=== PATIENT | female | born 1955 | race Caucasian/White ===

== ENCOUNTER 2017-12-12 08:27 | Emergency (ER) | payer OTHER ==
[~2017-12-12] VITALS: Ht 172.7 cm; Wt 86.2 kg
[~2017-12-12 08:27] MED LIST: ALPR0.5T PO
[2017-12-12] MEDS ORDERED: cloNIDine HCL 0.1 MG TAB PO ONE (08:45)
[2017-12-12 09:43] LABS: Eosinophils # (auto) 0.1 uL; Lymphocytes # (auto) 3.9 uL; Monocytes # (auto) 2.5 uL
[2017-12-12 09:44] LABS: Basophils # (auto) 0.1 uL; Basophils % (auto) 0.7 % (0.0-2.0); Eosinophils % (auto) 0.5 % (0.0-7.0); Hematocrit 39.6 % (36.0-46.0); Hemoglobin 13.1 g/dL (12.2-16.2); Lymphocytes % (auto) 17.9 % (10.0-50.0); Mean Corpuscular Hemoglobin 31.5 pg (28.0-32.0); Mean Corpuscular Hgb Conc. 33.1 g/dL (32.0-36.0); Mean Corpuscular Volume 95.2 fL (80.0-100.0); Monocytes % (auto) 11.5 % (0.0-12.0); Neutrophils % (auto) 69.4 % (37.0-80.0); Platelet Count (auto) 433 10^3/uL (140-450); Red Blood Cells 4.16 10^6/uL (4.0-5.20); Red Cell Distribution Width 13.8 % (11.8-14.3); White Blood Cell 21.6 10^3/uL (4.4-10.8)
[2017-12-12 10:08] LABS: INR 0.88 (0.9-1.15); Prothrombin Time 9.5 sec (9.27-12.13)
[2017-12-12 10:16] LABS: Alanine Aminotransferase 23 U/L (13-56); Albumin 3.3 g/dL (3.4-5.0); Alkaline Phosphatase 104 U/L (45-117); Anion Gap 10 (5-15); Aspartate Aminotransferase 15 U/L (15-37); BUN/Creatinine Ratio 20.2; Bilirubin, Total 0.2 mg/dL (0.2-1.0); Blood Urea Nitrogen 22 mg/dL (7-18); Calcium 9.2 mg/dL (8.5-10.1); Carbon Dioxide 23 mmol/L (21-32); Chloride 107 mmol/L (98-107); GFR African American 66 mL/min; GFR Non-African American 54 mL/min; Glucose 103 mg/dL (74-106); Potassium 4.2 mmol/L (3.5-5.1); Sodium 140 mmol/L (136-145); Total Protein 7.4 g/dL (6.4-8.2)
[2017-12-12] MEDS ORDERED: HYDROcodone-ACET 10/325MG TAB PO ONE (10:45)
[2017-12-12] MEDS ORDERED: SODIUM CHLORIDE 0.9% 500 ML IV ONE (11:41)
[2017-12-12] MEDS ORDERED: CLINDAMYCIN 600MG IV 50 ML IV ONE (11:45)
[2017-12-12] MEDS ORDERED: ONDANSETRON HCL 4 MG/2 ML VIAL IV ONE (11:45)
[2017-12-12] MEDS ORDERED: MEPERIDINE HCL (25 MG/ML) 1ML VIAL IV ONE ×2 (11:45→14:00)
[2017-12-12 14:55] VITALS: BP 181/50
== END 2017-12-12 15:39 | disposition home or self-care (01) ==
LOC: ER 08:31
DX: J32.0 Chronic maxillary sinusitis (principal); E78.5 Hyperlipidemia, unspecified; I10 Essential (primary) hypertension; F17.210 Nicotine dependence, cigarettes, uncomplicated; Z98.51 Tubal ligation status; Z90.89 Acquired absence of other organs; Z98.61 Coronary angioplasty status; Z86.73 Personal history of transient ischemic attack (TIA), and cerebral infarction without residual deficits
CPT/HCPCS: 36415; 70486; 80053; 84484; 85025; 85610; 85730; 93005; 94761; 96365; 96375; 96376; 99285; J2175; J2405; J3490; J7040

== ENCOUNTER 2019-08-18 17:46 | Inpatient (IN) | payer OTHER ==
[~2019-08-18] VITALS: Ht 172.7 cm; Wt 86.5 kg
[2019-08-18 18:44] LABS: Basophils # (auto) 0 uL; Basophils % (auto) 0.6 % (0.0-2.0); Eosinophils # (auto) 0.4 uL; Eosinophils % (auto) 4.3 % (0.0-7.0); Hematocrit 39.1 % (36.0-46.0); Hemoglobin 13.2 g/dL (12.2-16.2); Lymphocytes # (auto) 2.4 uL; Lymphocytes % (auto) 29.5 % (10.0-50.0); Mean Corpuscular Hemoglobin 32.7 pg (28.0-32.0); Mean Corpuscular Hgb Conc. 33.7 g/dL (32.0-36.0); Monocytes # (auto) 1.1 uL; Monocytes % (auto) 13.1 % (0.0-12.0); Neutrophils # (auto) 4.3 uL; Neutrophils % (auto) 52.5 % (37.0-80.0); Nucleated Red Blood Cells % 0.1 %; Platelet Count (auto) 224 10^3/uL (140-450); Red Blood Cells 4.03 10^6/uL (4.0-5.20); Red Cell Distribution Width 13.6 % (11.8-14.3); White Blood Cell 8.2 10^3/uL (4.4-10.8)
[2019-08-18 19:02] LABS: Alanine Aminotransferase 39 U/L (13-56); Albumin 3.1 g/dL (3.4-5.0); Anion Gap 6 (5-15); Aspartate Aminotransferase 33 U/L (15-37); BUN/Creatinine Ratio 22.5; Blood Urea Nitrogen 20 mg/dL (7-18); Calcium 8.5 mg/dL (8.5-10.1); Carbon Dioxide 24 mmol/L (21-32); Chloride 109 mmol/L (98-107); GFR African American 83 mL/min; GFR Non-African American 68 mL/min; Glucose 122 mg/dL (74-106); Potassium 3.7 mmol/L (3.5-5.1); Sodium 139 mmol/L (136-145)
[2019-08-18 19:07] LABS: Alkaline Phosphatase 91 U/L (45-117); Bilirubin, Total 0.2 mg/dL (0.2-1.0); Total Protein 6.8 g/dL (6.4-8.2)
[2019-08-18 19:12] LABS: INR 0.95 (0.9-1.15); Partial Thromboplastin Time 24.8 sec (23.64-32.05)
[2019-08-18] MEDS ORDERED: KETOROLAC TROMETH 15 mg/ml 1ML VL IV PRN (22:45)
[2019-08-18] MEDS ORDERED: MORPHINE SULF INJ 2 MG/ML SYRINGE 1ML IV PRN (22:45)
[2019-08-18] MEDS ORDERED: MORPHINE SULFATE 4 MG/ML SYR/VIAL IV PRN (22:45)
[2019-08-18] MEDS ORDERED: ALPRAZolam 0.5 MG TAB PO PRN (22:45)
[2019-08-18] MEDS ORDERED: NITROGLYCERIN 0.4 MG SL TAB SL PRN ×2 (22:45)
[2019-08-18] MEDS ORDERED: ONDANSETRON HCL 4 MG/2 ML VIAL IV PRN (22:45)
[2019-08-19] VITALS (7 sets, daily range): BP systolic 122–152; BP diastolic 61–77
--- NOTE | 2019-08-19 00:05 | NUR ---
Telemetry admit from ER MISBAH STRANGE admitted to Telemetry unit. Patient oriented to TIM CAMEJO, RN primary RN, unit, room, bed, and unit policies regarding patient care and visiting hours. Patient now on continuous telemetry monitoring, tele box # 67 and telemetry reading on arrival to unit is normal sinus rhythm at 67 beats per minute. Patient weighed by bedscale and encouraged to call if they need something. All questions and concerns addressed, patient verbalized understanding. Bed in lowest locked position, side rails up x2, call light within reach. Will round every hour and as needed and continue to monitor.
--- NOTE | 2019-08-19 02:00 | NUR ---
No repeat troponin labs noted, [employer] hcm consultant hospitalist paged, awaiting call back at this time.
--- NOTE | 2019-08-19 03:11 | NUR ---
Return page from loss prevention/safety district manager hospitalist Dr. Poncho Crowe MD at this time, new orders received for troponin lab draws every six hours times three. Per Dr. Crowe, monitor troponin levels and place Cardiology consult if "troponins come back positive". All orders read back and verified, will implement and continue to monitor.
[2019-08-19 04:22] LABS: Hematocrit 37.9 % (36.0-46.0); Hemoglobin 13.2 g/dL (12.2-16.2); Mean Corpuscular Hemoglobin 33.7 pg (28.0-32.0); Mean Corpuscular Hgb Conc. 34.8 g/dL (32.0-36.0); Mean Corpuscular Volume 96.9 fL (80.0-100.0); Platelet Count (auto) 197 10^3/uL (140-450); Red Blood Cells 3.91 10^6/uL (4.0-5.20); Red Cell Distribution Width 13.3 % (11.8-14.3); White Blood Cell 6.4 10^3/uL (4.4-10.8)
[2019-08-19 04:29] LABS: Chloride 111 mmol/L (98-107); Potassium 3.9 mmol/L (3.5-5.1); Sodium 143 mmol/L (136-145)
[2019-08-19 04:30] LABS: Basophils % (manual) 0 (0.0-2.0); Blast Cells 0; Metamyelocytes % 0; Myelocytes % 0; Promyelocytes % 0; Reactive Lymphocytes 0
[2019-08-19 04:42] LABS: Anion Gap 5 (5-15); BUN/Creatinine Ratio 21.6; Blood Urea Nitrogen 22 mg/dL (7-18); Calcium 8.8 mg/dL (8.5-10.1); Carbon Dioxide 27 mmol/L (21-32); Cholesterol 146 mg/dL (< 200); GFR African American 71 mL/min; GFR Non-African American 58 mL/min; Glucose 112 mg/dL (74-106); HDL Cholesterol 25 mg/dL (40-59); Triglycerides 650 mg/dL (< 150)
[2019-08-19 05:58] LABS: Eosinophils % (manual) 4 (0-7); Lymphocytes % (manual) 45 (10.0-50.0)
[2019-08-19 06:01] LABS: Band Neutrophils % (manual) 9; Monocytes % (manual) 11 (0-12)
--- NOTE | 2019-08-19 06:47 | NUR ---
Closing Note Patient lying in bed, eyes closed, respirations even and unlabored, appears asleep. No s/s of distress. Care endorsed to dayshift RN.
--- NOTE | 2019-08-19 08:30 | NUR ---
Opening Shift Note RECEIVED REPORT FROM NOC RN. Assumed care of patient, awake and alert. No S/S of distress/SOB or pain. BED IN LOWEST, LOCKED POSITION WITH SIDERAILS UP x2 AND CALL LIGHT WITHIN REACH. Instructed on POC and to call for assist PRN, will continue to monitor for changes Q1hr and PRN.
[2019-08-19] MEDS: DOCUSATE SOD 100 MG CAP PO SCH (10:08)
[2019-08-19] MEDS: ASPirin 81 mg TAB PO SCH (10:08)
[2019-08-19] MEDS: CLOPIDOGREL BISULFATE 75 MG TAB PO SCH (10:08)
[2019-08-19] MEDS: ACETAMINOPHEN 325 MG TAB PO PRN ×2 (10:09→20:01)
[2019-08-19] MEDS: METOPROLOL TARTRATE 25 MG TAB PO SCH ×2 (10:09→22:00)
[2019-08-19] MEDS: LISINOPRIL 10 MG TAB PO SCH (10:09)
[2019-08-19] MEDS ORDERED: MAGNESIUM OXIDE 400 MG TAB PO ONE (12:15)
--- NOTE | 2019-08-19 19:25 | NUR ---
Opening Shift Note Assumed care of patient, awake and alert. No S/S of distress/SOB or pain. Instructed on POC and to call for assist PRN, will continue to monitor for changes Q1hr and PRN.
[2019-08-19] MEDS: ATORVASTATIN 20 MG TAB PO SCH (21:50)
[2019-08-19] MEDS ORDERED: DOCUSATE SOD 100 MG CAP PO PRN (22:45)
--- NOTE | 2019-08-19 22:56 | NUR ---
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 PAGED HOSPITALIST, RECEIVED NEW ORDER FOR 100MG COLACE BID PRN. WILL ADMINISTER AND CONTINUE TO MONITOR.
[2019-08-20 05:00] VITALS: BP 135/72
[2019-08-20 05:48] LABS: Basophils # (auto) 0 uL; Basophils % (auto) 0.5 % (0.0-2.0); Eosinophils # (auto) 0.4 uL; Eosinophils % (auto) 5.4 % (0.0-7.0); Hematocrit 39.4 % (36.0-46.0); Hemoglobin 13.6 g/dL (12.2-16.2); Lymphocytes # (auto) 1.9 uL; Lymphocytes % (auto) 25.4 % (10.0-50.0); Mean Corpuscular Hemoglobin 33.4 pg (28.0-32.0); Mean Corpuscular Hgb Conc. 34.6 g/dL (32.0-36.0); Mean Corpuscular Volume 96.7 fL (80.0-100.0); Monocytes # (auto) 1.4 uL; Monocytes % (auto) 17.9 % (0.0-12.0); Neutrophils # (auto) 3.9 uL; Neutrophils % (auto) 50.8 % (37.0-80.0); Nucleated Red Blood Cells % 0.1 %; Platelet Count (auto) 198 10^3/uL (140-450); Red Blood Cells 4.08 10^6/uL (4.0-5.20); Red Cell Distribution Width 13.4 % (11.8-14.3); White Blood Cell 7.6 10^3/uL (4.4-10.8)
[2019-08-20 06:08] LABS: Anion Gap 6 (5-15); Blood Urea Nitrogen 18 mg/dL (7-18); Carbon Dioxide 24 mmol/L (21-32); Chloride 110 mmol/L (98-107); Glucose 101 mg/dL (74-106); Potassium 4.2 mmol/L (3.5-5.1); Sodium 140 mmol/L (136-145)
[2019-08-20 06:15] LABS: BUN/Creatinine Ratio 18.8; GFR African American 76 mL/min; GFR Non-African American 63 mL/min
[2019-08-20] MEDS ORDERED: ADENOSINE 74 MG in GIVE UN-DILUTED 0 ML IV STA (08:27)
[2019-08-20 09:00] VITALS: BP 129/72
[2019-08-20] MEDS: ASPirin 81 mg TAB PO SCH (09:56)
[2019-08-20] MEDS: DOCUSATE SOD 100 MG CAP PO SCH (09:57)
[2019-08-20] MEDS: LISINOPRIL 10 MG TAB PO SCH (09:58)
[2019-08-20] MEDS: CLOPIDOGREL BISULFATE 75 MG TAB PO SCH (09:58)
[2019-08-20] MEDS: METOPROLOL TARTRATE 25 MG TAB PO SCH ×2 (10:00→21:56)
[2019-08-20 11:51] VITALS: BP 129/86
[2019-08-20 13:00] VITALS: BP 124/70
[2019-08-20 16:58] VITALS: BP 142/70
[2019-08-20 21:16] VITALS: BP 134/74
[2019-08-20] MEDS: ATORVASTATIN 20 MG TAB PO SCH (21:55)
[2019-08-21 05:00] VITALS: BP 130/72
[2019-08-21] MEDS: SODIUM CHLORIDE 0.9% 1,000 ML IV SCH ×2 (05:09→11:08)
[2019-08-21 06:12] LABS: Basophils # (auto) 0 uL; Basophils % (auto) 0.4 % (0.0-2.0); Eosinophils # (auto) 0.5 uL; Eosinophils % (auto) 5.2 % (0.0-7.0); Hematocrit 40.1 % (36.0-46.0); Hemoglobin 13.8 g/dL (12.2-16.2); Lymphocytes # (auto) 2.3 uL; Lymphocytes % (auto) 24.8 % (10.0-50.0); Mean Corpuscular Hemoglobin 33.3 pg (28.0-32.0); Mean Corpuscular Hgb Conc. 34.5 g/dL (32.0-36.0); Mean Corpuscular Volume 96.7 fL (80.0-100.0); Monocytes # (auto) 1.4 uL; Monocytes % (auto) 15.5 % (0.0-12.0); Neutrophils # (auto) 5.1 uL; Neutrophils % (auto) 54.1 % (37.0-80.0); Platelet Count (auto) 199 10^3/uL (140-450); Red Blood Cells 4.14 10^6/uL (4.0-5.20); Red Cell Distribution Width 13.4 % (11.8-14.3); White Blood Cell 9.4 10^3/uL (4.4-10.8)
[2019-08-21 06:30] LABS: INR 0.95 (0.9-1.15); Partial Thromboplastin Time 25.4 sec (23.64-32.05)
[2019-08-21 06:33] LABS: Potassium 4.1 mmol/L (3.5-5.1)
[2019-08-21 06:42] LABS: BUN/Creatinine Ratio 16.5; Calcium 9.2 mg/dL (8.5-10.1)
--- NOTE | 2019-08-21 07:15 | NUR ---
OPENING SHIFT NOTE Patient comfortably resting in bed, AOx$. No s/s of distress or SOB noted/reported. Patient updated on POC for the day and to call for assistance as needed, patient verbalized understanding. Bed in low position, locked, side rails x2 up, call light within reach. Will continue to monitor.
[2019-08-21 09:00] VITALS: BP 124/69
--- NOTE | 2019-08-21 09:44 | NUR ---
OFF UNIT Patient transported to laboratory coordinator via bed, no s/s of distress noted/reported on departure.
[2019-08-21] MEDS: ASPirin 81 mg TAB PO SCH (10:00)
[2019-08-21] MEDS: LISINOPRIL 10 MG TAB PO SCH (10:00)
[2019-08-21] MEDS: DOCUSATE SOD 100 MG CAP PO SCH (10:00)
[2019-08-21] MEDS: METOPROLOL TARTRATE 25 MG TAB PO SCH ×2 (10:00→22:17)
[2019-08-21] MEDS: CLOPIDOGREL BISULFATE 75 MG TAB PO SCH (10:00)
[2019-08-21] MEDS ORDERED: LIDOCAINE 2%HCL (LOCAL ANESTH.) INJ 20ML MDV ONE (10:47)
[2019-08-21] MEDS ORDERED: IODIXANOL 320MG/ML 100ML BTL IV ONE (10:47)
[2019-08-21] MEDS ORDERED: SODIUM CHL 0.9% 50 ML ONE (10:48)
[2019-08-21] MEDS ORDERED: ANGIOMAX 250 MG VIAL IV ONE (10:48)
[2019-08-21] MEDS ORDERED: fentaNYL CITRATE 100 MCG/2 ML VL ONE (10:48)
[2019-08-21] MEDS ORDERED: MIDAZOLAM HCL 1MG/1ML-2 ML VIAL ONE (10:48)
[2019-08-21] MEDS ORDERED: VERAPAMIL 2.5MG/ML INJ 2ML VIAL IV ONE (10:48)
[2019-08-21] MEDS ORDERED: HEPARIN SODIUM (PORCINE) 5000 UNITS/ML 1ML VIAL ONE (10:49)
[2019-08-21] MEDS ORDERED: TICAGRELOR 90 MG TAB ONE (11:34)
[2019-08-21] MEDS ORDERED: ASPirin 325 MG TAB ONE (11:34)
--- NOTE | 2019-08-21 14:32 | NUR ---
VASC BAND Vasc band removed per protocol. Patient tolerated well. Will continue to monitor 1305- 2ml removed 1320- 2ml removed 1330- 2ml removed 1340- 2ml removed 1350- 2ml removed 1405- minimal bleeding noted, 2ml reinserted to vasc band. 1420- 2ml removed 1430- no new bleeding noted, gauze with tegaderm applied to site.
[2019-08-21] MEDS: ACETAMINOPHEN 325 MG TAB PO PRN (14:45)
[2019-08-21] MEDS ORDERED: LACTULOSE 20Gm/30ML SOLN PO ONE (15:15)
[2019-08-21 17:09] VITALS: BP 109/60
[2019-08-21] MEDS: ATORVASTATIN 20 MG TAB PO SCH (22:16)
[2019-08-21] MEDS: TICAGRELOR 90 MG TAB PO SCH (22:16)
[2019-08-21 22:21] VITALS: BP 157/86
[2019-08-22 05:06] VITALS: BP 111/61
[2019-08-22 05:49] LABS: Basophils # (auto) 0 uL; Basophils % (auto) 0.4 % (0.0-2.0); Eosinophils # (auto) 0.6 uL; Eosinophils % (auto) 5.5 % (0.0-7.0); Hematocrit 41.7 % (36.0-46.0); Hemoglobin 14.1 g/dL (12.2-16.2); Lymphocytes # (auto) 2.3 uL; Lymphocytes % (auto) 21.2 % (10.0-50.0); Mean Corpuscular Hemoglobin 32.7 pg (28.0-32.0); Mean Corpuscular Hgb Conc. 33.8 g/dL (32.0-36.0); Mean Corpuscular Volume 96.7 fL (80.0-100.0); Monocytes # (auto) 1.5 uL; Monocytes % (auto) 13.8 % (0.0-12.0); Neutrophils # (auto) 6.4 uL; Neutrophils % (auto) 59.1 % (37.0-80.0); Nucleated Red Blood Cells % 0.2 %; Platelet Count (auto) 216 10^3/uL (140-450); Red Blood Cells 4.31 10^6/uL (4.0-5.20); Red Cell Distribution Width 13.3 % (11.8-14.3); White Blood Cell 10.8 10^3/uL (4.4-10.8)
[2019-08-22 06:11] LABS: Potassium 4.1 mmol/L (3.5-5.1)
[2019-08-22 06:19] LABS: BUN/Creatinine Ratio 13.4
--- NOTE | 2019-08-22 07:15 | NUR ---
OPENING SHIFT NOTE Patient comfortably resting in bed, AOx4. No s/s of distress or SOB noted/reported. Patient updated on POC for the day and to call for assistance as needed, patient verbalized understanding. Bed in low position, locked, side rails x2 up, call light within reach. Will continue to monitor.
[2019-08-22 09:00] VITALS: BP 131/72
[2019-08-22] MEDS: TICAGRELOR 90 MG TAB PO SCH (09:56)
[2019-08-22] MEDS: DOCUSATE SOD 100 MG CAP PO SCH (09:56)
[2019-08-22] MEDS: LISINOPRIL 10 MG TAB PO SCH (09:56)
[2019-08-22] MEDS: METOPROLOL TARTRATE 25 MG TAB PO SCH (09:56)
[2019-08-22] MEDS ORDERED: ASPirin 81 mg TAB PO SCH (10:00)
[2019-08-22 13:28] VITALS: BP 131/72
--- NOTE | 2019-08-22 14:23 | NUR ---
PT DISCHARGED Discharge instructions given as ordered. Encourage to follow up with PMD as instructed. All questions and concerns addressed. Patient verbalized understanding. IV removed with catheter intact, pressure dressing applied. Telemetry unit returned to ICU. Patient taken to vehicle via wheelchair with all personal belongings, accompanied by staff and family member. No distress noted at time of departure.
--- NOTE | 2019-08-22 14:56 | NUR ---
Nutrition Assessment Notes Please refer to link for full assessment notes. Est energy needs: 5339-1716 kcals (20-23 kcal/kgBW) Est protein needs: 69-87 gms/day (0.8-1.0 gm/kgBW) Will continue to monitor and reassess prn. Addendum: 08/22/19 at [address] Amended: Links added.
[2019-08-22] MEDS: SODIUM CHLORIDE 0.9% 1,000 ML IV SCH ×2 (14:57→15:08)
== END 2019-08-22 14:23 | disposition home or self-care (01) | DRG 247 ==
LOC: ER 17:46 → TELE 17:47 → ER 20:19 → TELE-WESTW 23:06
PROVIDERS: ADMIT Hospitalist; ATTEND Internal Medicine
PROC: 4A023N7 Measurement of Cardiac Sampling and Pressure, Left Heart, Percutaneous Approach (ICD-10-PCS; principal; 2019-08-21)
PROC: 027034Z Dilation of Coronary Artery, One Artery with Drug-eluting Intraluminal Device, Percutaneous Approach (ICD-10-PCS; 2019-08-21)
PROC: B2151ZZ Fluoroscopy of Left Heart using Low Osmolar Contrast (ICD-10-PCS; 2019-08-21)
PROC: B2111ZZ Fluoroscopy of Multiple Coronary Arteries using Low Osmolar Contrast (ICD-10-PCS; 2019-08-21)
DX: I25.10 Atherosclerotic heart disease of native coronary artery without angina pectoris (principal); I10 Essential (primary) hypertension; E78.1 Pure hyperglyceridemia; F41.9 Anxiety disorder, unspecified; E78.5 Hyperlipidemia, unspecified; Z95.5 Presence of coronary angioplasty implant and graft; Z79.82 Long term (current) use of aspirin; Z79.899 Other long term (current) drug therapy; Z79.02 Long term (current) use of antithrombotics/antiplatelets; Z80.0 Family history of malignant neoplasm of digestive organs; Z82.49 Family history of ischemic heart disease and other diseases of the circulatory system; Z83.3 Family history of diabetes mellitus; Z87.891 Personal history of nicotine dependence; Z90.49 Acquired absence of other specified parts of digestive tract
CPT/HCPCS: 36415; 71045; 78452; 80048; 80053; 80061; 83735; 83880; 84443; 84484; 85007; 85025; 85027; 85610; 85730; 92928; 93017; 93306; 93458; 93925; 99152; 99153; C1874; G0378; J0153; J2250; Q9967

== ENCOUNTER 2023-07-18 11:52 | Inpatient (IN) | payer OTHER ==
[~2023-07-18] VITALS: Ht 172.7 cm; Wt 93.0 kg
[2023-07-18] MEDS ORDERED: ASPirin 325 MG TAB PO ONE (12:15)
[2023-07-18] MEDS ORDERED: SODIUM CHLORIDE 0.9% 500 ML IV ONE ×2 (12:15→14:00)
[2023-07-18] MEDS ORDERED: NITROGLYCERIN 0.4 MG SL TAB SL ONE (12:15)
[2023-07-18 12:19] LABS: Basophils # (auto) 0.1 10 ^3/uL (0-0.2); Basophils % (auto) 0.5 % (0.0-2.0); Eosinophils # (auto) 0.1 10 ^3/uL (0-0.8); Eosinophils % (auto) 1.2 % (0.0-7.0); Hematocrit 39.9 % (36.0-46.0); Hemoglobin 13.4 g/dL (12.2-16.2); Lymphocytes # (auto) 4.2 10 ^3/uL (0.4-5.4); Lymphocytes % (auto) 34.1 % (10.0-50.0); Mean Corpuscular Hemoglobin 32.4 pg (28.0-32.0); Mean Corpuscular Hgb Conc. 33.7 g/dL (32.0-36.0); Mean Corpuscular Volume 96.1 fL (80.0-100.0); Monocytes # (auto) 1.1 10 ^3/uL (0-1.3); Monocytes % (auto) 8.9 % (0.0-12.0); Neutrophils # (auto) 6.7 10 ^3/uL (1.6-8.6); Neutrophils % (auto) 55.3 % (37.0-80.0); Red Blood Cells 4.16 10^6/uL (4.0-5.20); Red Cell Distribution Width 13.4 % (11.8-14.3); White Blood Cell 12.2 10^3/uL (4.4-10.8)
[2023-07-18 12:35] LABS: Alanine Aminotransferase 19 U/L (7-40); Albumin 4.6 g/dL (3.2-4.8); Alkaline Phosphatase 103 U/L (46-116); Anion Gap 7 (5-15); Aspartate Aminotransferase 25 U/L (13-40); BUN/Creatinine Ratio 17.9 (10.0-20.0); Bilirubin, Total 0.3 mg/dL (0.2-1.0); Blood Urea Nitrogen 17 mg/dL (9-23); Carbon Dioxide 25 mmol/L (20-30); Chloride 106 mmol/L (98-107); Glucose 104 mg/dL (74-106); Potassium 4.1 mmol/L (3.5-5.1); Sodium 138 mmol/L (136-145); Total Protein 6.8 g/dL (5.7-8.2)
[2023-07-18] MEDS ORDERED: LISI10TA34 PO (13:57)
[2023-07-18] MEDS ORDERED: ALPR0.255 PO (13:57)
[2023-07-18] MEDS ORDERED: ESCI1TAB37 (13:57)
[2023-07-18] MEDS ORDERED: MET25T PO (13:57)
[2023-07-18] MEDS ORDERED: ATOR40TA52 PO (13:57)
[2023-07-18] MEDS ORDERED: ESCI1TAB37 PO (13:57)
[2023-07-18] MEDS ORDERED: ACETAMINOPHEN 325 MG TAB PO PRN (14:00)
[2023-07-18] MEDS ORDERED: NITROGLYCERIN 0.4 MG SL TAB SL PRN (14:00)
[2023-07-18] MEDS ORDERED: hydrALAZINE HCL 20 MG/ML VL IV PRN (14:15)
[2023-07-18] MEDS: SODIUM CHLORIDE 0.9% 1,000 ML IV SCH (14:43)
[2023-07-18 14:50] LABS: Triglycerides 246 mg/dL (< 150)
[2023-07-18 14:51] LABS: LDL Cholesterol 80 mg/dL (< 100)
[2023-07-18 14:52] LABS: Cholesterol 160 mg/dL (< 200); HDL Cholesterol 36 mg/dL (40-59)
[2023-07-18 16:56] VITALS: PULSE 67; RESP 18; O2SAT 95
[2023-07-18] MEDS: MORPHINE SULFATE INJ 2 MG/ml SYRG IV PRN ×2 (17:10→20:07)
[2023-07-18 19:36] VITALS: PULSE 52; RESP 17; O2SAT 94
[2023-07-18] MEDS ORDERED: PANTOPRAZOLE 40 MG TAB PO ONE (20:00)
[2023-07-18 21:49] LABS: Urine Bacteria NONE SEEN /hpf (None Seen); Urine Blood 2+ /uL (Negative); Urine Clarity Clear (Clear); Urine Color Yellow (Yellow); Urine Protein, UAD Negative (Negative); Urine Specific Gravity 1.022 (1.001-1.035); Urine Urobilinogen Normal (Negative); Urine WBC <1 /hpf (0 - 5)
[2023-07-18] MEDS ORDERED: ESCI20TA PO (23:12)
[2023-07-18] MEDS ORDERED: ASPI81CH59 PO (23:12)
[2023-07-19] VITALS (9 sets, daily range): BP systolic 125–146; BP diastolic 50–66; PULSE 47–72; RESP 17–20; TEMP 96.9–98.5; O2SAT 93–97
[2023-07-19] MEDS ORDERED: HYDROcodone-ACET 5/325MG TAB PO ONE (03:00)
[2023-07-19] MEDS: SODIUM CHLORIDE 0.9% 1,000 ML IV SCH ×2 (06:40→23:31)
[2023-07-19 07:55] LABS: Alanine Aminotransferase 13 U/L (7-40); Albumin 3.6 g/dL (3.2-4.8); Alkaline Phosphatase 80 U/L (46-116); Anion Gap 6 (5-15); Aspartate Aminotransferase 16 U/L (13-40); BUN/Creatinine Ratio 12.1 (10.0-20.0); Blood Urea Nitrogen 11 mg/dL (9-23); Calcium 9.2 mg/dL (8.5-10.1); Carbon Dioxide 21 mmol/L (20-30); Chloride 113 mmol/L (98-107); Glucose 90 mg/dL (74-106); Potassium 4.1 mmol/L (3.5-5.1); Sodium 140 mmol/L (136-145)
[2023-07-19 07:56] LABS: Bilirubin, Total 0.3 mg/dL (0.2-1.0); Total Protein 5.6 g/dL (5.7-8.2)
[2023-07-19 08:01] LABS: Basophils # (auto) 0 10 ^3/uL (0-0.2); Basophils % (auto) 0.4 % (0.0-2.0); Eosinophils # (auto) 0.3 10 ^3/uL (0-0.8); Eosinophils % (auto) 2.1 % (0.0-7.0); Hematocrit 37.3 % (36.0-46.0); Hemoglobin 11.9 g/dL (12.2-16.2); Lymphocytes # (auto) 3.8 10 ^3/uL (0.4-5.4); Lymphocytes % (auto) 32.5 % (10.0-50.0); Mean Corpuscular Hgb Conc. 31.8 g/dL (32.0-36.0); Mean Corpuscular Volume 100.6 fL (80.0-100.0); Monocytes # (auto) 1.1 10 ^3/uL (0-1.3); Monocytes % (auto) 9.4 % (0.0-12.0); Neutrophils # (auto) 6.5 10 ^3/uL (1.6-8.6); Neutrophils % (auto) 55.6 % (37.0-80.0); Nucleated Red Blood Cells % 0.1 %; Red Blood Cells 3.71 10^6/uL (4.0-5.20); Red Cell Distribution Width 13.8 % (11.8-14.3); White Blood Cell 11.8 10^3/uL (4.4-10.8)
[2023-07-19] MEDS: ENOXAPARIN SOD 40 MG/0.4 ML SYRINGE SC SCH (10:28)
[2023-07-19] MEDS: ASPirin 81 mg TAB PO SCH (10:29)
[2023-07-19] MEDS ORDERED: TEMAZEPAM 15 MG CAP PO ONE (20:30)
[2023-07-19] MEDS: ATORVASTATIN 20 MG TAB PO SCH (22:10)
[2023-07-20] VITALS (7 sets, daily range): BP systolic 138–148; BP diastolic 69–90; PULSE 53–70; RESP 17–18; TEMP 97.2–98.6; O2SAT 93–98
[2023-07-20 06:33] LABS: Basophils # (auto) 0 10 ^3/uL (0-0.2); Basophils % (auto) 0.6 % (0.0-2.0); Eosinophils # (auto) 0.2 10 ^3/uL (0-0.8); Hematocrit 36.9 % (36.0-46.0); Hemoglobin 12.5 g/dL (12.2-16.2); Lymphocytes # (auto) 2.4 10 ^3/uL (0.4-5.4); Lymphocytes % (auto) 29.1 % (10.0-50.0); Mean Corpuscular Hemoglobin 32.6 pg (28.0-32.0); Monocytes # (auto) 0.9 10 ^3/uL (0-1.3); Monocytes % (auto) 10.3 % (0.0-12.0); Neutrophils # (auto) 4.8 10 ^3/uL (1.6-8.6); Nucleated Red Blood Cells % 0.1 %; Red Blood Cells 3.85 10^6/uL (4.0-5.20); Red Cell Distribution Width 13.4 % (11.8-14.3); White Blood Cell 8.2 10^3/uL (4.4-10.8)
[2023-07-20 06:39] LABS: INR 0.97 (0.9-1.15); Prothrombin Time 10.2 sec (9.3-11.8)
[2023-07-20 06:44] LABS: Alanine Aminotransferase 11 U/L (7-40); Albumin 3.9 g/dL (3.2-4.8); Alkaline Phosphatase 81 U/L (46-116); Anion Gap 7 (5-15); Aspartate Aminotransferase 16 U/L (13-40); BUN/Creatinine Ratio 15.6 (10.0-20.0); Blood Urea Nitrogen 14 mg/dL (9-23); Calcium 9.5 mg/dL (8.5-10.1); Carbon Dioxide 24 mmol/L (20-30); Chloride 111 mmol/L (98-107); Glucose 91 mg/dL (74-106); LDL Cholesterol 67 mg/dL (< 100); Potassium 4.1 mmol/L (3.5-5.1); Sodium 142 mmol/L (136-145); Triglycerides 162 mg/dL (< 150)
[2023-07-20 06:45] LABS: Bilirubin, Total 0.4 mg/dL (0.2-1.0); Cholesterol 129 mg/dL (< 200); HDL Cholesterol 30 mg/dL (40-59)
[2023-07-20 06:51] LABS: Lipase 113 U/L (12-53); Magnesium 1.9 mg/dL (1.6-2.6)
[2023-07-20] MEDS ORDERED: SODIUM CHLORIDE 0.9% 1,000 ML IV ONE (09:15)
[2023-07-20] MEDS: GEMFIBROZIL 600 MG TAB PO SCH (10:00)
[2023-07-20] MEDS: PANTOPRAZOLE 40 MG/10 ML VIAL INJ IV SCH (10:00)
[2023-07-20] MEDS: ENOXAPARIN SOD 40 MG/0.4 ML SYRINGE SC SCH (10:00)
[2023-07-20] MEDS ORDERED: LISINOPRIL 10 MG TAB PO SCH (10:00)
[2023-07-20] MEDS: ASPirin 81 mg TAB PO SCH (10:00)
[2023-07-20] MEDS ORDERED: REGADENOSON 0.4 MG/5 ML SYRG IV ONE ×2 (11:40→12:00)
[2023-07-20] MEDS ORDERED: IOHEXOL 300 MG/ML 100ML BOTTLE IJ ONE (12:05)
[2023-07-20] MEDS: SODIUM CHLORIDE 0.9% 1,000 ML IV SCH (16:02)
[2023-07-20] MEDS: METOPROLOL TARTRATE 25 MG TAB PO SCH (22:00)
[2023-07-20] MEDS: ATORVASTATIN 20 MG TAB PO SCH (22:25)
[2023-07-21 05:00] VITALS: BP 156/88; PULSE 70; RESP 19; TEMP 98; O2SAT 95
[2023-07-21 07:54] VITALS: PULSE 65
[2023-07-21 08:00] VITALS: PULSE 63; PULSE 84; RESP 19; O2SAT 96
[2023-07-21 08:07] LABS: CA 27.29 35.1 U/mL (0.0-38.6); Cancer Antigen (CA) 125 6.4 U/mL (0.0-38.1)
[2023-07-21] MEDS: SODIUM CHLORIDE 0.9% 1,000 ML IV SCH (08:48)
[2023-07-21 09:00] VITALS: BP 156/81; PULSE 65; RESP 19; TEMP 98.2; O2SAT 96
[2023-07-21] MEDS: ASPirin 81 mg TAB PO SCH (10:12)
[2023-07-21] MEDS: METOPROLOL TARTRATE 25 MG TAB PO SCH (10:13)
[2023-07-21] MEDS: GEMFIBROZIL 600 MG TAB PO SCH (10:14)
[2023-07-21] MEDS: ENOXAPARIN SOD 40 MG/0.4 ML SYRINGE SC SCH (10:15)
[2023-07-21] MEDS: PANTOPRAZOLE 40 MG/10 ML VIAL INJ IV SCH (10:15)
[2023-07-21 12:36] VITALS: BP 151/65; PULSE 87; RESP 18; TEMP 97.5; O2SAT 98
[2023-07-21 13:00] VITALS: BP 145/83; PULSE 66; RESP 18; TEMP 98.4; O2SAT 95
== END 2023-07-21 14:07 | disposition home health service (06) | DRG 439 ==
LOC: ER 11:52 → TELE 13:56 → TELE-CENTR 13:56
PROVIDERS: ADMIT Nurse Practitioner Family; ATTEND Internal Medicine
PROC: 4A02XM4 Measurement of Cardiac Total Activity, External Approach (ICD-10-PCS; principal; 2023-07-20)
PROC: 3E073KZ Introduction of Other Diagnostic Substance into Coronary Artery, Percutaneous Approach (ICD-10-PCS; 2023-07-20)
DX: K85.90 Acute pancreatitis without necrosis or infection, unspecified (principal); I25.110 Atherosclerotic heart disease of native coronary artery with unstable angina pectoris; E78.5 Hyperlipidemia, unspecified; E86.0 Dehydration; I10 Essential (primary) hypertension; E78.1 Pure hyperglyceridemia; F32.9 Major depressive disorder, single episode, unspecified; D35.01 Benign neoplasm of right adrenal gland; Z90.49 Acquired absence of other specified parts of digestive tract; Z98.61 Coronary angioplasty status; Z83.3 Family history of diabetes mellitus; Z82.49 Family history of ischemic heart disease and other diseases of the circulatory system; Z87.891 Personal history of nicotine dependence; Z79.82 Long term (current) use of aspirin; Z80.0 Family history of malignant neoplasm of digestive organs
CPT/HCPCS: 36415; 71045; 74178; 74181; 76705; 78452; 80053; 80061; 81001; 82378; 83690; 83735; 84443; 84484; 85025; 85610; 85730; 86300; 86301; 86304; 93005; 93017; 93306; C9113; G0378

== ENCOUNTER 2024-01-15 07:48 | Observation (INO) | payer OTHER ==
[~2024-01-15] VITALS: Ht 172.7 cm; Wt 97.1 kg
[~2024-01-15 07:48] MED LIST changes: -ALPR0.5T PO; +ASPI81CH59 PO; +ATOR40TA52 PO; +ESCI1TAB37 PO; +LISI10TA34 PO; +MET25T PO
[2024-01-15] MEDS: BUPIVACAINE HCL 50 ML ONE (10:00)
[2024-01-15] MEDS: TRANEXAMIC ACID 20 ML ONE (10:00)
[2024-01-15] MEDS ORDERED: fentaNYL CITRATE 100 MCG/2 ML VL ONE (10:04)
[2024-01-15] MEDS ORDERED: PROPOFOL 10 MG/ML 20 ML IV ONE (10:05)
[2024-01-15] MEDS ORDERED: MIDAZOLAM HCL 2MG/2ML 2ml VIAL (1mg/ml) ONE (10:05)
[2024-01-15] MEDS ORDERED: ONDANSETRON HCL 4 MG/2 ML VIAL ONE (10:05)
[2024-01-15] MEDS ORDERED: SODIUM CHLORIDE LOCK 10 ML ONE (10:05)
[2024-01-15] MEDS ORDERED: KETAMINE 50mg/ML 1ml syringe ONE (10:06)
[2024-01-15] MEDS: METOCLOPRAMIDE HCL 5MG/ml INJ 2ml VIAL IV ONE (10:45)
[2024-01-15] MEDS ORDERED: HYDROmorphone HCL 2 MG/ML VL/or syr IV PRN ×3 (10:45→12:45)
[2024-01-15] MEDS ORDERED: fentaNYL CITRATE 100 MCG/2 ML VL IV PRN (10:45)
[2024-01-15] MEDS ORDERED: NALOXONE HCL 0.4 MG/ML VIAL IV PRN (10:45)
[2024-01-15] MEDS ORDERED: diphenhdrAMINE HCL 50 MG/1 ML VL IV PRN (10:45)
[2024-01-15] MEDS ORDERED: MORPHINE SULFATE INJ 2 MG/ml SYRG IV PRN ×3 (10:45→12:45)
[2024-01-15] MEDS: CEFEPIME 1GM/ 50ML 50 ML IV ONE (10:48)
[2024-01-15] MEDS: ceFAZolin 2 GM/D5W50ml 50 ML IV ONE (11:04)
[2024-01-15] MEDS: MORPHINE SULF PF 5 MG/10 ML VIAL ONE (11:36)
[2024-01-15] MEDS: KETOROLAC TROMETH 30 MG/ML 1ML VIAL ONE (11:36)
[2024-01-15] MEDS: VANCOMYCIN HCL 1000 MG VL ONE (11:36)
[2024-01-15 12:45] VITALS: O2SAT 98
[2024-01-15] MEDS ORDERED: NITROGLYCERIN 0.4 MG SL TAB SL PRN (12:45)
[2024-01-15] MEDS: ceFAZolin 1GM/50ML 50 ML IV SCH (12:45)
[2024-01-15] MEDS: DexAMETHasone SOD PHOS 4 MG/1ML SDV INJ ONE (13:04)
[2024-01-15 15:37] VITALS: PULSE 64; RESP 16; O2SAT 96
[2024-01-15 15:40] VITALS: BP 113/60; PULSE 64; RESP 16; TEMP 97.5; O2SAT 96
[2024-01-15 16:02] VITALS: BP 92/62; PULSE 64; RESP 16; TEMP 97.5; O2SAT 96
[2024-01-15 20:00] VITALS: PULSE 75; PULSE 79; RESP 18; O2SAT 94
[2024-01-15] MEDS: ONDANSETRON HCL 4 MG/2 ML VIAL IV PRN (20:31)
[2024-01-15 21:00] VITALS: BP 100/51; PULSE 79; RESP 18; TEMP 98.2; O2SAT 94
[2024-01-15] MEDS: oxyCODONE ER 10 MG TAB PO SCH (22:00)
[2024-01-15] MEDS: DOCUSATE SOD 100 MG CAP PO SCH (22:02)
[2024-01-16] VITALS (26 sets, daily range): BP systolic 72–149; BP diastolic 51–129; PULSE 59–90; RESP 16–18; TEMP 97.6–98.1; O2SAT 93–95
[2024-01-16] MEDS: OXYCODONE W/ ACETAMINOPHEN 5/325MG TABLET PO PRN (06:47)
[2024-01-16] MEDS: CEFEPIME 1GM/ 50ML 50 ML IV SCH (08:20)
[2024-01-16] MEDS: ENOXAPARIN SOD 40 MG/0.4 ML SYRINGE SC SCH (08:21)
[2024-01-16 12:48] LABS: Basophils # (auto) 0.1 10 ^3/uL (0-0.2); Basophils % (auto) 0.4 % (0.0-2.0); Eosinophils # (auto) 0 10 ^3/uL (0-0.8); Hematocrit 33.7 % (36.0-46.0); Hemoglobin 11.1 g/dL (12.2-16.2); Lymphocytes # (auto) 1.8 10 ^3/uL (0.4-5.4); Lymphocytes % (auto) 8.3 % (10.0-50.0); Mean Corpuscular Hemoglobin 31.4 pg (28.0-32.0); Mean Corpuscular Hgb Conc. 32.9 g/dL (32.0-36.0); Mean Corpuscular Volume 95.3 fL (80.0-100.0); Monocytes # (auto) 2.2 10 ^3/uL (0-1.3); Monocytes % (auto) 9.8 % (0.0-12.0); Neutrophils # (auto) 18.1 10 ^3/uL (1.6-8.6); Neutrophils % (auto) 81.5 % (37.0-80.0); Red Blood Cells 3.54 10^6/uL (4.0-5.20); Red Cell Distribution Width 13.8 % (11.8-14.3); White Blood Cell 22.2 10^3/uL (4.4-10.8)
[2024-01-16 13:00] LABS: Chloride 106 mmol/L (98-107); Potassium 4.1 mmol/L (3.5-5.1); Sodium 136 mmol/L (136-145)
[2024-01-16 13:01] LABS: Anion Gap 5 (5-15); Calcium 9.9 mg/dL (8.7-10.4); Carbon Dioxide 25 mmol/L (20-30)
[2024-01-16 13:06] LABS: BUN/Creatinine Ratio 15.8 (10.0-20.0); Blood Urea Nitrogen 23 mg/dL (9-23); Glucose 169 mg/dL (74-106)
[2024-01-16] MEDS: MELATONIN 5 MG TAB PO ONE (23:51)
[2024-01-17 05:00] VITALS: BP 149/76; PULSE 90; RESP 18; TEMP 98.2; O2SAT 92
[2024-01-17 08:30] VITALS: PULSE 70; PULSE 77; RESP 14; O2SAT 94
[2024-01-17 09:00] VITALS: BP_SYST 156; BP_SYST 171; BP_DIAS 82; BP_DIAS 84; PULSE 72; RESP 20; TEMP 97.8; O2SAT 96
[2024-01-17] MEDS: LISINOPRIL 5 MG TAB PO SCH (11:00)
[2024-01-17] MEDS: METOPROLOL TARTRATE 25 MG TAB PO SCH (11:00)
[2024-01-17] MEDS: SODIUM CHLORIDE 0.9% 1,000 ML IV ONE ×2 (12:00)
[2024-01-17] MEDS: hydrALAZINE HCL 20 MG/ML VL IV PRN (12:39)
[2024-01-17 13:00] VITALS: BP 161/66; PULSE 78; RESP 20; TEMP 98.4; O2SAT 98
[2024-01-17 13:34] LABS: Basophils # (auto) 0 10 ^3/uL (0-0.2); Basophils % (auto) 0.2 % (0.0-2.0); Eosinophils # (auto) 0.1 10 ^3/uL (0-0.8); Eosinophils % (auto) 0.7 % (0.0-7.0); Hematocrit 34.5 % (36.0-46.0); Hemoglobin 11.3 g/dL (12.2-16.2); Lymphocytes # (auto) 2.9 10 ^3/uL (0.4-5.4); Lymphocytes % (auto) 15.5 % (10.0-50.0); Mean Corpuscular Hemoglobin 31.3 pg (28.0-32.0); Mean Corpuscular Hgb Conc. 32.8 g/dL (32.0-36.0); Mean Corpuscular Volume 95.6 fL (80.0-100.0); Monocytes # (auto) 2.2 10 ^3/uL (0-1.3); Monocytes % (auto) 11.4 % (0.0-12.0); Neutrophils # (auto) 13.7 10 ^3/uL (1.6-8.6); Neutrophils % (auto) 72.2 % (37.0-80.0); Red Blood Cells 3.61 10^6/uL (4.0-5.20); Red Cell Distribution Width 13.7 % (11.8-14.3); White Blood Cell 18.9 10^3/uL (4.4-10.8)
[2024-01-17] MEDS: ACETAMINOPHEN 325 MG TAB PO PRN (13:34)
[2024-01-17 13:42] LABS: Chloride 106 mmol/L (98-107); Sodium 136 mmol/L (136-145)
[2024-01-17 13:43] LABS: Anion Gap 4 (5-15); Calcium 9.5 mg/dL (8.7-10.4); Carbon Dioxide 26 mmol/L (20-30)
[2024-01-17 13:48] LABS: Blood Urea Nitrogen 16 mg/dL (9-23); Glucose 117 mg/dL (74-106)
[2024-01-17 14:08] VITALS: BP 151/74; PULSE 84
== END 2024-01-17 15:00 | disposition home health service (06) ==
LOC: SUR 07:48 → OVERFLOW 12:34 → TELE-CENTR 15:35
PROVIDERS: ADMIT Orthopaedic Surgery; ATTEND Orthopaedic Surgery Adult Reconstructive Orthopaedic Surgery
DX: M17.11 Unilateral primary osteoarthritis, right knee (principal); D72.829 Elevated white blood cell count, unspecified; E78.5 Hyperlipidemia, unspecified; F32.9 Major depressive disorder, single episode, unspecified; I12.9 Hypertensive chronic kidney disease with stage 1 through stage 4 chronic kidney disease, or unspecified chronic kidney disease; N18.30 Chronic kidney disease, stage 3 unspecified; Z87.891 Personal history of nicotine dependence; Z79.899 Other long term (current) drug therapy; Z98.890 Other specified postprocedural states
CPT/HCPCS: 27447; 36415; 73562; 80048; 85025; 86850; 86900; 86901; 96365; 96366; 96367; 96372; 96375; 96376; 97110; 97116; 97163; 97530; C1713; C1776; G0378; J0360; J0690; J0692; J1650; J1885; J2250; J2270; J2405; J2704; J3010; J3370; J3490; J7030; J1100

== ENCOUNTER 2024-01-26 02:51 | Inpatient (IN) | payer OTHER ==
[~2024-01-26] VITALS: Ht 172.7 cm; Wt 92.8 kg
[2024-01-26 03:59] LABS: Basophils # (auto) 0.1 10 ^3/uL (0-0.2); Basophils % (auto) 0.5 % (0.0-2.0); Eosinophils # (auto) 0.2 10 ^3/uL (0-0.8); Eosinophils % (auto) 1.1 % (0.0-7.0); Hematocrit 35.3 % (36.0-46.0); Hemoglobin 12.2 g/dL (12.2-16.2); Lymphocytes # (auto) 2.4 10 ^3/uL (0.4-5.4); Lymphocytes % (auto) 13.2 % (10.0-50.0); Mean Corpuscular Hemoglobin 32.4 pg (28.0-32.0); Mean Corpuscular Hgb Conc. 34.5 g/dL (32.0-36.0); Mean Corpuscular Volume 93.9 fL (80.0-100.0); Monocytes # (auto) 1.3 10 ^3/uL (0-1.3); Monocytes % (auto) 7.4 % (0.0-12.0); Neutrophils # (auto) 14.1 10 ^3/uL (1.6-8.6); Neutrophils % (auto) 77.8 % (37.0-80.0); Red Blood Cells 3.76 10^6/uL (4.0-5.20); Red Cell Distribution Width 13.7 % (11.8-14.3); White Blood Cell 18.1 10^3/uL (4.4-10.8)
[2024-01-26 04:15] LABS: Alanine Aminotransferase 43 U/L (7-40); Albumin 4.4 g/dL (3.2-4.8); Alkaline Phosphatase 106 U/L (46-116); Anion Gap 8 (5-15); Aspartate Aminotransferase 36 U/L (13-40); BUN/Creatinine Ratio 17.6 (10.0-20.0); Bilirubin, Total 0.6 mg/dL (0.2-1.0); Blood Urea Nitrogen 21 mg/dL (9-23); Calcium 10.2 mg/dL (8.7-10.4); Carbon Dioxide 25 mmol/L (20-30); Chloride 102 mmol/L (98-107); Glucose 131 mg/dL (74-106); Potassium 4.3 mmol/L (3.5-5.1); Sodium 135 mmol/L (136-145); Total Protein 7.3 g/dL (5.7-8.2)
[2024-01-26 06:27] VITALS: PULSE 99; RESP 18; O2SAT 97
[2024-01-26] MEDS: cefTRIAXone 1GM/50ML D5W 50 ML IV ONE (06:27)
[2024-01-26] MEDS: metroNIDAZOLE 500MG/100ML 100 ML IV ONE (07:26)
[2024-01-26] MEDS ORDERED: ACETAMINOPHEN 325 MG TAB PO PRN (09:30)
[2024-01-26] MEDS ORDERED: MORPHINE SULFATE INJ 2 MG/ml SYRG IV PRN (09:30)
[2024-01-26] MEDS ORDERED: ONDANSETRON HCL 4 MG/2 ML VIAL IV PRN (09:30)
[2024-01-26 10:00] VITALS: PULSE 89; RESP 16; O2SAT 95
[2024-01-26] MEDS: ENOXAPARIN SOD 40 MG/0.4 ML SYRINGE SC SCH (10:18)
[2024-01-26] MEDS: SODIUM CHLORIDE 0.9% 1,000 ML IV SCH (10:18)
[2024-01-26] MEDS: levoFLOXacin 500MG 100 ML IV SCH (10:18)
[2024-01-26] MEDS: HYDROcodone-ACET 5/325MG TAB PO PRN (12:08)
[2024-01-26] MEDS: DOCUSATE SOD 100 MG CAP PO PRN (12:08)
[2024-01-26] MEDS: metroNIDAZOLE 500MG/100ML 100 ML IV SCH (18:41)
[2024-01-26 18:43] VITALS: BP 131/65; PULSE 90; RESP 16; TEMP 98.4; O2SAT 97
[2024-01-26 20:00] VITALS: PULSE 81; PULSE 88; RESP 19; O2SAT 98
[2024-01-26 21:00] VITALS: BP 129/61; PULSE 88; RESP 22; TEMP 98.9; O2SAT 98
[2024-01-27] VITALS (9 sets, daily range): BP systolic 130–158; BP diastolic 68–74; PULSE 70–90; RESP 20–22; TEMP 37.2; O2SAT 94–99
[2024-01-27 07:30] LABS: Anion Gap 9 (5-15); Basophils # (auto) 0.1 10 ^3/uL (0-0.2); Basophils % (auto) 0.5 % (0.0-2.0); Carbon Dioxide 26 mmol/L (20-30); Chloride 104 mmol/L (98-107); Eosinophils # (auto) 0.2 10 ^3/uL (0-0.8); Eosinophils % (auto) 2.1 % (0.0-7.0); Hematocrit 31.3 % (36.0-46.0); Hemoglobin 10.7 g/dL (12.2-16.2); Lymphocytes # (auto) 2.2 10 ^3/uL (0.4-5.4); Lymphocytes % (auto) 22.7 % (10.0-50.0); Mean Corpuscular Hemoglobin 32.6 pg (28.0-32.0); Mean Corpuscular Hgb Conc. 34.4 g/dL (32.0-36.0); Neutrophils # (auto) 6.3 10 ^3/uL (1.6-8.6); Neutrophils % (auto) 64.7 % (37.0-80.0); Potassium 4.1 mmol/L (3.5-5.1); Red Blood Cells 3.29 10^6/uL (4.0-5.20); Red Cell Distribution Width 13.9 % (11.8-14.3); Sodium 139 mmol/L (136-145); White Blood Cell 9.8 10^3/uL (4.4-10.8)
[2024-01-27 07:31] LABS: Calcium 9.7 mg/dL (8.7-10.4)
[2024-01-27 07:36] LABS: BUN/Creatinine Ratio 14.4 (10.0-20.0); Blood Urea Nitrogen 15 mg/dL (9-23); Glucose 114 mg/dL (74-106)
[2024-01-27] MEDS ORDERED: MET500T PO (10:15)
[2024-01-27] MEDS ORDERED: LEVO500T91 PO (10:15)
== END 2024-01-27 14:47 | disposition home health service (06) | DRG 392 ==
LOC: ER 02:51 → TELE 09:28 → TELE-WESTW 17:49
PROVIDERS: ADMIT Internal Medicine; ATTEND Internal Medicine
DX: K57.32 Diverticulitis of large intestine without perforation or abscess without bleeding (principal); C18.9 Malignant neoplasm of colon, unspecified; F32.9 Major depressive disorder, single episode, unspecified; E78.5 Hyperlipidemia, unspecified; I10 Essential (primary) hypertension; M17.11 Unilateral primary osteoarthritis, right knee; K59.00 Constipation, unspecified; Z96.651 Presence of right artificial knee joint; Z87.891 Personal history of nicotine dependence; Z82.49 Family history of ischemic heart disease and other diseases of the circulatory system; Z83.3 Family history of diabetes mellitus; Z80.0 Family history of malignant neoplasm of digestive organs; Z79.899 Other long term (current) drug therapy
CPT/HCPCS: 36415; 74176; 80048; 80053; 83605; 85025; 87040; 87081; 96365; 96366; 96367; 96372; G0378; J1956; J3490

== ENCOUNTER 2024-02-26 14:30 | Emergency (ER) | payer OTHER ==
[~2024-02-26] VITALS: Ht 172.7 cm; Wt 93.8 kg
[~2024-02-26 14:30] MED LIST changes: +LEVO500T91 PO; +MET500T PO
[2024-02-26 16:01] LABS: Urine Bacteria None Seen /hpf (None Seen)
[2024-02-26 16:05] LABS: Basophils # (auto) 0.1 10 ^3/uL (0-0.2); Basophils % (auto) 0.5 % (0.0-2.0); Eosinophils # (auto) 0.4 10 ^3/uL (0-0.8); Eosinophils % (auto) 3.5 % (0.0-7.0); Hematocrit 32.4 % (36.0-46.0); Hemoglobin 10.9 g/dL (12.2-16.2); Lymphocytes % (auto) 31.3 % (10.0-50.0); Mean Corpuscular Hemoglobin 32.2 pg (28.0-32.0); Mean Corpuscular Hgb Conc. 33.5 g/dL (32.0-36.0); Monocytes % (auto) 8.1 % (0.0-12.0); Neutrophils # (auto) 7.2 10 ^3/uL (1.6-8.6); Neutrophils % (auto) 56.6 % (37.0-80.0); Platelet Count (auto) 302 10^3/uL (140-450); Red Blood Cells 3.38 10^6/uL (4.0-5.20); Red Cell Distribution Width 14.2 % (11.8-14.3); White Blood Cell 12.6 10^3/uL (4.4-10.8)
[2024-02-26 16:09] LABS: Urine Blood Negative /uL (Negative); Urine Clarity Clear (Clear); Urine Color Colorless (Yellow); Urine Protein, UAD Negative (Negative); Urine Specific Gravity 1.005 (1.001-1.035); Urine Urobilinogen Normal (Negative); Urine WBC <1 /hpf (0 - 5)
[2024-02-26 16:21] LABS: Anion Gap 6 (5-15); Carbon Dioxide 25 mmol/L (20-30); Chloride 110 mmol/L (98-107); Potassium 3.8 mmol/L (3.5-5.1); Sodium 141 mmol/L (136-145)
[2024-02-26 16:22] LABS: Calcium 9.5 mg/dL (8.7-10.4)
[2024-02-26 16:27] LABS: Blood Urea Nitrogen 13 mg/dL (9-23); Glucose 98 mg/dL (74-106)
[2024-02-26] MEDS: SULFAMETHOX W/TRIMETH(800/160MG) DS TAB PO ONE (17:15)
[2024-02-26 17:19] VITALS: BP 140/62; PULSE 75; RESP 16; TEMP 98.4; O2SAT 96
[2024-02-26] MEDS ORDERED: BACDST PO (17:31)
== END 2024-02-26 17:52 | disposition home or self-care (01) ==
LOC: ER 14:30
DX: L03.115 Cellulitis of right lower limb (principal); I82.401 Acute embolism and thrombosis of unspecified deep veins of right lower extremity; Z87.891 Personal history of nicotine dependence
CPT/HCPCS: 36415; 73562; 80048; 81001; 85025; 93971